=== PATIENT | female | born 1960 | race Caucasian/White ===

== ENCOUNTER 2021-05-22 05:37 | Outpatient (CLI) | payer MEDICARE ==
[~2021-05-22] VITALS: Ht 162.6 cm; Wt 120.0 kg
[2021-05-27] MEDS ORDERED: HYDR25TA4 PO (10:22)
[2021-05-27] MEDS ORDERED: BUSP5TAB59 PO (10:22)
[2021-05-27] MEDS ORDERED: SERT-414 PO (10:22)
[2021-05-27] MEDS ORDERED: PANT40TA52 PO (10:22)
[2021-05-27] MEDS ORDERED: LOSA100T57 PO (10:22)
[2021-05-27] MEDS ORDERED: CYCL10TA9 PO (10:22)
== END 2021-05-27 10:38 | disposition home or self-care (01) ==
LOC: PREOP 05:37
PROVIDERS: ATTEND Surgery
DX: Z01.818 Encounter for other preprocedural examination (principal)

== ENCOUNTER 2021-05-29 09:39 | Day surgery (SDC) | payer MEDICARE ==
[~2021-05-29] VITALS: Ht 162 cm; Wt 120.0 kg
[2021-05-29] VITALS (11 sets, daily range): BP systolic 100–145; BP diastolic 66–98
[~2021-05-29 09:39] MED LIST: BUSP5TAB59 PO; CYCL10TA9 PO; HYDR25TA4 PO; LOSA100T57 PO; PANT40TA52 PO; SERT-414 PO
--- NOTE | 2021-05-29 09:49 | Progress Note-Pre Operative ---
Pre-Operative Progress Note H&P Reviewed The H&P was reviewed, patient examined and no changes noted. Date Seen by Provider: May 29, 2021 Time Seen by Provider: 09:49 Date H&P Reviewed: May 29, 2021 Time H&P Reviewed: 09:45 Pre-Operative Diagnosis: Symptomatic umbilical hernia TEN GATES APRN May 29, 2021 09:49
[2021-05-29] MEDS ORDERED: HYDR-3817 PO ×2 (09:51→14:02)
--- NOTE | 2021-05-29 09:52 | Discharge Inst-Surgical ---
D/C Lap Instructions-KIDO Reconcile Patient Problems Problems Reviewed?: Yes New, Converted, or Re-Newed RX: RX on Chart Follow Up Appt in 2 weeks Activity as tolerated No driving for 24 hours No driving while on pain medications Incentive Spirometry use every 2 hours while awake Regular Diet Symptoms to Report: Fever over 101 degree F, Nausea/Vomiting Infection Signs and Symptoms to report: Increased redness, Foul odor of wound, Increased drainage Bathing instructions: May shower Operative Area Clean/Dry; Keep incision clean/dry If any problems/questions: Contact your physician or go to Emergency Room TEN GATES APRN May 29, 2021 09:52
[2021-05-29] MEDS ORDERED: ACETAMINOPHEN 325 MG TABLET PO PRN (10:00)
[2021-05-29] MEDS ORDERED: ceFAZolin 2 GM IV Premixed 50 ML IV ONE (10:00)
[2021-05-29] MEDS ORDERED: ONDANSETRON 4 MG/2 ML (SDV) Z0FRAN IVP PRN ×2 (10:00→12:45)
[2021-05-29] MEDS ORDERED: HYDROcodone/APAP 5 MG/325 MG (LORTAB) TAB PO ONE (10:00)
[2021-05-29] MEDS ORDERED: morphine INJ 10 MG/ML 1ML (SYR OR VIAL) IVP PRN (10:00)
[2021-05-29] MEDS: LACTATED RINGERS 1,000 ML IV PRN ×2 (10:09→11:50)
[2021-05-29 10:10] LABS: BASOPHILS # (AUTO) 0.1 10^3/uL (0.0-0.1); BASOPHILS % (AUTO) 1 % (0-10); EOSINOPHILS # (AUTO) 0.5 10^3/uL (0.0-0.3); EOSINOPHILS % (AUTO) 5 % (0-10); HEMATOCRIT 32 % (35-52); HEMOGLOBIN 8.8 g/dL (11.5-16.0); LYMPHOCYTES # (AUTO) 1.9 10^3/uL (1.0-4.0); LYMPHOCYTES % (AUTO) 16 % (12-44); MEAN CORPUSCULAR HEMOGLOBIN 18 pg (25-34); MEAN CORPUSCULAR HGB CONC 28 g/dL (32-36); MEAN CORPUSCULAR VOLUME 66 fL (80-99); MEAN PLATELET VOLUME 8.9 fL (9.0-12.2); MONOCYTES # (AUTO) 0.7 10^3/uL (0.0-1.0); MONOCYTES % (AUTO) 6 % (0-12); NEUTROPHILS # (AUTO) 8.3 10^3/uL (1.8-7.8); NEUTROPHILS % (AUTO) 71 % (42-75); PLATELET COUNT 556 10^3/uL (130-400); WHITE BLOOD COUNT 11.7 10^3/uL (4.3-11.0)
[2021-05-29 10:27] LABS: ALBUMIN 3.9 GM/DL (3.2-4.5); BILIRUBIN,TOTAL 0.7 MG/DL (0.1-1.0); CALCIUM 9.6 MG/DL (8.5-10.1); CREATININE SERUM 0.95 MG/DL (0.60-1.30); POTASSIUM 4.1 MMOL/L (3.6-5.0); TOTAL PROTEIN 8.2 GM/DL (6.4-8.2)
[2021-05-29] MEDS ORDERED: MIDAZOLAM 2 MG/2 ML (VERSED) VIAL IV ONE (10:30)
[2021-05-29] MEDS ORDERED: FAMOTIDINE 20MG/2ML IV (PEPCID) IV ONE (10:30)
[2021-05-29] MEDS ORDERED: fentaNYL INJ 100 MCG/2 ML AMP ONE (11:01)
[2021-05-29] MEDS ORDERED: LIDOCAINE/EPI 1%-1:200,000 (XYLOCAINE) 30 ML VIAL ONE (11:14)
--- NOTE | 2021-05-29 12:07 | Progress Note-Post Operative ---
Post-Operative Progess Note Surgeon (s)/Link Wire Fabric Machine Tender (s) Surgeon NEAL DOMÍNGUEZ MD Link Wire Fabric Machine Tender: karely cruz LEAD SQL DEVELOPER Pre-Operative Diagnosis Symptomatic umbilical hernia Post-Operative Diagnosis sx reducible umbilical hernia. Procedure & Operative Findings Date of Procedure 05/29/21 Procedure Performed/Findings open umbilical hernia repair with mesh. Anesthesia Type get Estimated Blood Loss Estimated blood loss (mL): minimal Specimens/Packing Specimens Removed hernia sac NEAL DOMÍNGUEZ MD May 29, 2021 12:07
[2021-05-29] MEDS ORDERED: SEVOFLURANE (ULTANE) 15 ML INHAL SOLN ONE (12:27)
[2021-05-29] MEDS ORDERED: ROCURONIUM 10 MG/ML 5 ML SYRINGE IV ONE (12:27)
[2021-05-29] MEDS ORDERED: NEOSTIGMINE 3 MG/3 ML VIAL ONE (12:27)
[2021-05-29] MEDS ORDERED: GLYCOPYRROLATE 0.2 MG/ML (ROBINUL) 2 ML VIAL ONE (12:27)
[2021-05-29] MEDS ORDERED: ONDANSETRON 4 MG/2 ML (SDV) Z0FRAN ONE (12:27)
[2021-05-29] MEDS ORDERED: proPOfol 200 MG/20 ML (DIPRIVAN) VIAL IV ONE (12:27)
[2021-05-29] MEDS ORDERED: LIDOCAINE PF 2% 5 ML (XYLOCAINE) VIAL ONE (12:27)
[2021-05-29] MEDS ORDERED: morphine INJ 10 MG/ML 1ML (SYR OR VIAL) ONE (12:42)
[2021-05-29] MEDS ORDERED: morphine INJ 10 MG/ML 1ML (SYR OR VIAL) IVP ONE (12:45)
[2021-05-29] MEDS ORDERED: HYDROmorphone 2 MG/ML VIAL (DILAUDID) IV ONE (12:45)
[2021-05-29] MEDS ORDERED: fentaNYL INJ 100 MCG/2 ML AMP IVP ONE (12:45)
--- NOTE | 2021-05-29 12:47 | Anesthesia-General Post-Op ---
General Patient Condition Mental Status/LOC: Same as Preop Cardiovascular: Satisfactory Nausea/Vomiting: Absent Respiratory: Satisfactory Pain: Controlled Complications: Absent Post Op Complications Complications None Follow Up Care/Instructions Patient Instructions None needed. Anesthesia/Patient Condition Patient Condition Patient is doing well, no complaints, stable vital signs, no apparent adverse anesthesia problems. No complications reported per nursing. HAVEN CIFUENTES CRNA May 29, 2021 12:47
[2021-05-29] MEDS ORDERED: HYDROcodone/APAP 7.5 MG/325 MG (LORTAB, LORCET PLUS) TABLET PO ONE ×2 (14:50→15:15)
--- NOTE | 2021-05-29 14:57 | OPERATIVE REPORT ---
DATE OF SERVICE: 05/29/2021 ATTENDING PRIMARY ESTIMATION MANAGER: CLEVE Latham PREOPERATIVE DIAGNOSIS: Symptomatic reducible umbilical hernia. POSTOPERATIVE DIAGNOSIS: Symptomatic reducible umbilical hernia. PROCEDURE: Open umbilical hernia repair with mesh. SURGEON: Neal Domínguez MD. GENERAL PEDIATRICIAN: Juan Howell APRN. ANESTHESIA: General endotracheal. ESTIMATED BLOOD LOSS: Minimal. FINDINGS: A large umbilical hernia with only omentum within the hernia sac. The defect was approximately 5 cm in size. DISPOSITION: The patient tolerated the procedure well. INDICATIONS: The patient is a 60-year-old female referred over to us for symptomatic umbilical hernia. She has had this for many years and has grown significantly larger in size and at times does become incarcerated. Upon examination, she was found to have a large umbilical hernia, which was reducible; however, significantly tender to palpation. DESCRIPTION OF PROCEDURE: The patient was brought to the operating room, laid supine on the table. After adequate IV pain and sedative medications and general endotracheal intubation, the abdomen was prepped and draped in standard surgical fashion. A 0.5% Marcaine with epinephrine was used to anesthetize the overlying skin in the supraumbilical rim and a crescent shaped skin incision made using a 15 blade. The subcutaneous tissue was then dissected down using electrocautery. The hernia sac was identified and completely dissected using blunt dissection as well as electrocautery to the fascial base. Hernia sac was then opened using cautery with only omentum within the hernia sac and the hernia sac was completely excised using electrocautery under direct visualization. The fascial defect was approximately 5 cm in size and a coated polypropylene mesh 15.2 cm in diameter was then placed into the defect and sutured transfascially using 0 Prolene interrupted sutures. Good hemostasis was observed. The umbilicus was then imbricated to the mesh using a 3-0 Vicryl suture. Subcutaneous tissue was then reapproximated using 3-0 Vicryl interrupted sutures. Skin was closed using 4-0 Monocryl running subcuticular suture. Wound was then cleaned and covered with Dermabond. The umbilicus was then filled with tonsil sponges followed by 4 x 4 gauze followed by large Op-Site followed by abdominal binder. The patient tolerated the procedure well. We will start IV normal pain medication as well as a clear liquid diet. Once she is tolerating clears, has good pain control with oral pain medications, ambulating well, we will discharge her home. She will be instructed to keep the pressure dressing on for approximately five days and continue to wear the abdominal binder on both day and night for the next two weeks and to do no heavy lifting or exertion for the next six weeks. Job ID: [id number] DocumentID: [id number] Dictated Date: 05/29/2021 12:18:35 Validation Leader Date: 05/29/2021 14:56:30 Dictated By: NEAL DOMÍNGUEZ MD
== END 2021-05-29 14:40 ==
LOC: SDC 09:39
PROVIDERS: ATTEND Surgery
DX: K42.9 Umbilical hernia without obstruction or gangrene (principal); I10 Essential (primary) hypertension; K21.9 Gastro-esophageal reflux disease without esophagitis; E66.01 Morbid (severe) obesity due to excess calories; F32.9 Major depressive disorder, single episode, unspecified; F17.210 Nicotine dependence, cigarettes, uncomplicated; Z68.42 Body mass index [BMI] 45.0-49.9, adult; Z79.899 Other long term (current) drug therapy; Z90.49 Acquired absence of other specified parts of digestive tract; Z90.89 Acquired absence of other organs; Z83.3 Family history of diabetes mellitus; Z80.49 Family history of malignant neoplasm of other genital organs
CPT/HCPCS: 49585; 80053; 85025; 87081; 94664; C1781; 36415